=== PATIENT | male | born 1980 | race African-American/Black ===

== ENCOUNTER 2022-09-06 06:56 | Emergency (ER) | payer BC, SELFPAY ==
[2022-09-06 07:07] VITALS: BP 127/63; PULSE 86; RESP 16; TEMP 36.2; O2SAT 99; BMI 27.3
--- NOTE | 2022-09-06 07:27 | ED.DENTAL ---
HPI - Dental/Oral General Chief complaint: Dental/Oral Stated complaint: Broke Tooth on left side top Time Seen by Provider: 09/06/22 07:15 Source: patient Mode of arrival: ambulatory Limitations: no limitations History of Present Illness HPI Narrative: 42-year-old male came in for evaluation of broken tooth after eating a frozen candy bar in the morning. Patient has no pain, no gum pain or swelling, no fever, no chills. Have been 1 hour before coming to the emergency room. Related Data Allergies Allergy/AdvReac Type Severity Reaction Status Date / Time No Known Allergies Allergy Verified 09/06/22 07:07 Review of Systems Review of Systems: All other systems are reviewed and are negative Constitutional: Reports as per HPI and Reports no additional constitutional complaints Eyes: Reports as per HPI and Reports no additional eye complaints Reports system reviewed and no additional complaints, except as documented Cardiovascular: Reports as per HPI and Reports no additional cardiovascular complaints Respiratory: Reports as per HPI and Reports no additional respiratory complaints Gastrointestinal: Reports as per HPI and Reports no additional gastrointestinal complaints Genitourinary: Reports no additional female genitourinary complaints Musculoskeletal: Reports no additional musculoskeletal complaints Skin/Breast: Reports system reviewed and no additional complaints, except as docu Psychiatric: Reports no additional psychiatric complaints Endocrine: Reports no additional endocrine complaints Hematologic/Lymphatic: Reports no additional hematologic/lymphatic complaints Allergic/Immunologic: Reports no additional allergic/immunologic complaints Reports system reviewed and no additional complaints, except as documented and Reports Abnormal speech present [facility] Social History Social History Alcohol intake: current Alcohol intake frequency: 0-2 drinks per day Smoked in Last 30 Days: Yes Use of substances other than those prescribed or required for medical reasons: Yes Substance Use Type: Crack/Cocaine and Marijuana Advance Directives: No Physical Exam Vital Signs: Vital Signs: Last Vital Signs Temp 97.2 F 09/06/22 07:07 Pulse 86 09/06/22 07:07 Resp 16 09/06/22 07:07 BP 127/63 09/06/22 07:07 Pulse Ox 99 09/06/22 07:07 O2 Del Method Room Air 09/06/22 07:07 BMI result Body Mass Index 27.3 Vital signs have been reviewed as appeared to be correct. Blood pressure normal. Heart rate normal. Respiration rate normal. Temperature normal. Oxygen saturation normal. Appearance: Alert. Oriented X3. No acute distress. Head: Normal external exam. Normocephalic. Atraumatic. No Castle signs noted. No raccoon eyes noted. Dental exam: Small missing portion of the left upper 2nd molar tooth, no gum swelling around it, no fluctuation all section. Eyes: PERRLA. EOMI. Conjunctiva and sclera normal. Eyelids normal. ENT: TM's Normal. Pharynx normal. Uvula midline. Moist mucous membranes. No trismus noted. No drooling noted. No muffled voice noted. Neck: Normal inspection. Neck supple. FROM. No adenopathy. Thyroid Normal. No meningeal signs. No neck mass noted. CVS: Normal heart rate and rhythm. Heart sound normal. No murmurs noted. Pulses normal throughout. Respiratory: No respiratory distress. Painless inspiration. Breath sounds normal. No wheezes/rales/rhonchi noted. Chest nontender. No accessory muscle usage noted or decreased air movement noted. Abdomen: Soft and nontender. Bowel sounds normal in all 4 quadrants. No distention noted. No organomegaly noted. No visible injury noted. Back: No CVA tenderness. Full range of motion noted. Skin: Skin warm and dry. Normal skin color. Normal skin turgor. No rashes/lesions/lacerations noted. Extremities: No lower extremity edema. Extremities exhibit normal range of motion. Extremities nontender. Neuro: Oriented X 3. Cranial nerve exam: II-XII are grossly intact No motor deficit. No sensory deficit. Reflexes normal. Course Course Course Narrative: Broken tooth, no gum infection, no pain, no abscess. Patient can be discharged to follow-up with a dentist recommended to take ibuprofen. Medical Decision Making Differential Diagnosis Differential Diagnoses: The differential diagnosis associated with the presentation includes (Gingivitis, dental abscess, broken tooth, dental decay.) Discharge Plan Discharge Clinical Impression: Toothache Patient Disposition: Home, Self-Care Instructions: Toothache (ED) Additional Instructions: Follow-up with your dentist. Stand Alone Forms: Work/School Release
[2022-09-06 07:28] VITALS: BP 115/48; PULSE 70; RESP 14; TEMP 36.6; O2SAT 95
--- NOTE | 2022-09-06 07:28 | PC.NURSE ---
Patient present this morning for a broken tooth after eating a frozen KitKat this morning. Third tooth in on the top left side noted to be broken upon inspection. Patient in good spirits laughing about the situation. Patient A+O calm and cooperative at this time.
== END 2022-09-06 07:36 | disposition home or self-care (01) ==
PROVIDERS: Emergency Provider Emergency Medicine
DX: K08.89 Other specified disorders of teeth and supporting structures (principal)
CPT/HCPCS: 99282; 99284